=== PATIENT | male | born 1990 | race Caucasian/White ===

== ENCOUNTER 2021-11-09 02:14 | Emergency (ER) | payer OTHER, SELFPAY ==
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
[2021-11-09 02:21] VITALS: BP 137/90; PULSE 108; RESP 23; TEMP 36.8; O2SAT 97
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
== END 2021-11-09 05:10 | disposition home or self-care (01) ==
PROVIDERS: Emergency Provider Emergency Medicine
DX: S16.1XXA Strain of muscle, fascia and tendon at neck level, initial encounter (principal); S80.02XA Contusion of left knee, initial encounter; S20.212A Contusion of left front wall of thorax, initial encounter; V49.40XA Driver injured in collision with unspecified motor vehicles in traffic accident, initial encounter
CPT/HCPCS: 71101; 72125; 73562; 99284